=== PATIENT | male | born 1980 ===

== ENCOUNTER 2024-10-01 22:37 | Observation (INO) | payer OTHER, SELFPAY ==
[2024-10-01] VITALS (7 sets, daily range): BP systolic 100–149; BP diastolic 68–95; BMI 28.7; BMI 28.8
[2024-10-01 17:38] LABS: Glucose - Point of Care 88 mg/dl (70-99)
[2024-10-01 17:55] LABS: ALT (SGPT) 54 U/L (0-50); AST (SGOT) 36 U/L (17-59); Albumin 5.2 g/dl (3.5-5.0); Alkaline Phosphatase 40 U/L (38-126); Blood Urea Nitrogen 13 mg/dl (9-20); Calcium 9.6 mg/dl (8.4-10.2); Carbon Dioxide 22 mmol/L (22-30); Chloride 104 mmol/L (98-107); Glucose 95 mg/dl (70-99); Potassium 3.7 mmol/L (3.5-5.1); Sodium 141 mmol/L (135-145); Total Bilirubin 0.7 mg/dl (0.2-1.3); Total Protein 8.2 g/dl (6.3-8.2); eGFR > 60.00
--- NOTE | 2024-10-01 17:58 | EDRN ---
Pt says he is dehydrated and that he has not eaten much today. Pt says he passed out earlier today so his called 911. Pt adds he has family hx heart conditions and he is borderline diabetic. Pt says he knows he has PVCs from previous ekgs he
has had done. 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 Pt also had moments today of numbness on his L leg and arm 'but very little.' Pt notes 'weakness in my stomach with nausea.' Nausea came after pt developed symptoms. When pt passed out, he was
stressed out, feeling overwhelmed with work. Pt was standing, called his then he sat and tried to drink water then focused on breathing exercises then passed out. Pt did not have dizziness 'I felt I was losing oxygen.' No pain/pressure in
chest. EMS found pt's sbp to be 106 which pt says is very low for him. Pt has had few sips of water while in ED room and also ate some crackers and feels more alert. Pt has discomfort in his abdomen currently and has tingling in his L fingers and
says if he really thinks about it, he has some numbness on the tip of his R fingers. Pt thinks he passed out for approximately 30 seconds. No headache, fever/chills/cough, vomiting, urinary symptoms.
[2024-10-01 18:00] LABS: Hematocrit 38.3 % (39.0-52.0); Hemoglobin 13.1 g/dL (13.0-18.0); Mean Corp Hgb Conc. 34.2 g/dL (33.0-37.0); Mean Corpuscular Hgb 28.9 pg (27.0-31.0); Mean Corpuscular Volume 84.5 fL (80.0-94.0); Platelet Count 273 10^3/uL (130-400); Red Blood Cell Count 4.53 10^6/uL (4.70-6.10); Red Cell Dist. Width 12.9 % (11.5-14.5); White Blood Cell Count 9.4 10^3/uL (4.8-10.8)
[2024-10-01 18:06] LABS: Troponin I < 0.012 ng/ml
--- NOTE | 2024-10-01 18:09 | ED.GENMED ---
History of Present Illness
General
Chief Complaint: Fainting/Passed Out
Source: patient
Exam Limitations: none
Time Seen by Provider: 10/01/24 17:55
History of Present Illness
History of Present Illness:
43yoM with no significant past medical history presenting via EMS for evaluation after syncopal episode. Patient reports feeling unwell today. He was very busy with work and did not eat much throughout the day. He was experiencing a discomfort in
his epigastric region with nausea. He was also feeling dehydrated. He was getting done with work for the day and was standing. He suddenly became short of breath and called his . He felt like he was not getting enough oxygen and lost
consciousness. He was unconscious for about 30 seconds. He is currently feeling better but continues to report a discomfort in his epigastric region. He denies any chest pain. He has been told that his heart rate was low at prior PCP visits and
prior EKGs have shown PVCs. 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 His uncle and grandfather both have pacemakers.
Phy Exam
General Physical Exam
General Presentation: well appearing and no apparent distress
General Skin: warm and dry
General Habitus: normal
General Mental: alert
ENT Exam
ENT Exam: normocephalic
Cardiovascular Exam
Cardiovascular Exam: regular rate/rhythm, no edema and other (Frequent PVCs on the monitor which do not correlate with a palpable pulse)
Pulmonary Exam
Pulmonary Exam: lungs clear, no respiratory distress, no rales, no crackles, no rhonchi and no wheezing
Gastrointestinal Exam
Gastrointestinal Exam: non tender, soft and non distended
Neurological Exam
Neurological Exam: alert
[place] Coma Scale
Eye Opening: Spontaneous
Verbal Response: Oriented
Motor Response: Obeys Commands
GCS Total Score: 15
Skin Exam
Skin Exam: normal color and warm/dry
Psychiatric Exam
Psychiatric Exam: normal mood/affect
Course
Orders/Labs/Results
Orders:
Orders
10/01/24 17:16
Electrocardiogram (*1) Urgent
Reason for Study: Syncope
EKG- Treatment ONCE
10/01/24 17:26
Electrocardiogram (*1) Urgent
Reason for Study: Other
Other Reason for Exam: Possible Stroke
Bedside Glucose- Treatment ONCE
Cardiac Monitoring- Treatment ONCE
IV Insert/Care/Rem.- Treatment PRN
Vital Signs As Directed
Frequency: Other
Weight As Directed
Frequency: Once
Comment: ZERO STRETCHER SCALE FOR ACCURATE WEIGHT
O2 Therapy [RESP] Urgent
Titrate/Wean O2 to maintain O2 sat greater than (%): 93
Special Instructions: MAINTAIN CONTINUOUS O2 SATS > OR = 93%
10/01/24 17:27
EKG- Treatment ONCE
10/01/24 17:30
Complete Blood Count/With Diff Urgent
Comprehensive Metabolic Panel Urgent
Lipase Urgent
Comment: ADDON
Magnesium Urgent
Comment: ADDON
Troponin I Urgent
10/01/24 18:08
Add On- LAB Urgent
Tests Added?: lipase and magnesium level
0.9% Sodium Chloride 1000 ml [Nss] 1,000 ml IV BOLUS
10/01/24 18:40
D-Dimer Urgent
PTT Urgent
Prothrombin Time Urgent
10/01/24 19:26
Urinalysis Reflex To Culture Urgent
Date Specimen was Collected: 10/01/24
Time Specimen was Collected: 19:21
Urine Microscopic Reflex Cult Urgent
Urine Culture Urgent
[place] Source: U
Specimen Description:
Date Specimen was Collected: 10/01/24
Time Specimen was Collected: 19:21
10/01/24 21:01
Troponin I Urgent
Abnormal Lab Results
10/01/24 10/01/24
17:30 19:26
RBC 4.53 L 10^6/uL
(4.70-6.10)
Hct 38.3 L %
(39.0-52.0)
Absolute Lymphs (auto) 5.1 H 10^3/uL
(1.2-3.4)
Absolute Monos (auto) 0.7 H 10^3/uL
(0.1-0.6)
Neutrophils % 37.8 L %
(42.2-75.2)
Lymphocytes % 53.8 H %
(20.5-51.1)
ALT 54 H U/L
(0-50)
Albumin 5.2 H g/dl
(3.5-5.0)
Ur Occult Blood Reflex 2+ A
(Negative)
Leukocyte Esterase Rfl 1+ A
(Negative)
10/01/24 17:30
10/01/24 17:30
Vital Signs
Initial and Last Documented VS:
Initial Vital Signs
Temp Pulse Resp BP Pulse Ox
97.7 F 45 18 149/95 100
10/01/24 17:20 10/01/24 17:20 10/01/24 17:20 10/01/24 17:20 10/01/24 17:20
Last Documented Vital Signs
Temp Pulse Resp BP Pulse Ox
97.7 F 87 21 100/77 100
10/01/24 17:20 10/01/24 21:00 10/01/24 21:00 10/01/24 21:00 10/01/24 17:57
MDM/Problems Addressed
Differential Diagnosis Includes:
43yoM here after a syncopal episode. Preceded by shortness of breath. Has not eaten much today and was feeling dehydrated. Episode preceded by SOB. VSS. He is awake, alert, with a GCS of 15. Frequent PVCs noted on the monitor which do not correlate
with a palpable pulse. Differential diagnosis includes but is not limited to: dehydration, orthostatic hypotension, vasovagal episode, arrhythmia
Initial ED plan: Triage EKG shows NSR with frequent PVCs and QTc of 493. Check cardiac labs, magnesium, lipase, D-dimer, and place on education nurse. IV fluid bolus.
*EKG
Interpreted by ED Provider?: Yes
EKG Intrepretation Date: 10/01/24
Heart Rate: 84
Rate: normal
Rhythm: sinus and PVC's
[place]: normal axis
Interval: other (QTc 493)
QRS Pattern: normal QRS
Ischemia: no ischemia
*Critical Care Note
Total Time (30-74mins, 75-104mins- exclusive of procedures): Not Applicable
Update Note
Update Note:
Labs overall unremarkable including normal electrolytes. Troponin within normal limits. D-dimer normal making PE very unlikely. Patient continues to have frequent PVCs throughout ED course. Will admit for telemetry monitoring and cardiology
evaluation.
ED Attending Note
-
Portions of this chart may have been created with voice recognition software.� Occasional wrong word or��sound alike� substitutions may have occurred due to the inherent limitations of voice recognition software.
Discharge Plan
Departure
Patient Disposition: Admit
Date of Disposition: 10/01/24
Time of Disposition: 21:23
Presentation/result/management discussed w/ accepting MD/DO: Hospitalist
Discharge Problem:
Frequent PVCs, Syncope
Prescriptions:
No Action
Claritin-D 12 Hour 5-120 mg Tablet Extended Release 12 Hr
1 tab PO DAILY
Referrals:
NONE,* [Family Provider] -
Interventions
Interventions:
*Risk Screen - Suicide Last Done: 10/01/24 17:20
*General Assessment Last Done: 10/01/24 17:20
*Neglect/Abuse Screening Last Done: 10/01/24 17:20
*ED- Fall Risk Assessment Last Done: 10/01/24 17:20
ED- Cardiac Assessment Last Done: 10/01/24 18:14
ED- Neurological Assessment Last Done: 10/01/24 18:14
Discharge Date and Time
Print Language: YAKUT
[2024-10-01] MEDS: NSS 1000 IV (18:11)
[2024-10-01 18:19] LABS: % Basophils 0.2 % (0-2); % Eosinophils 1.1 % (0-6); % Immature Granulocytes 0.1 % (0-0.5); % Lymphocytes 53.8 % (20.5-51.1); % Neutrophils 37.8 % (42.2-75.2); Absolute Eosinophils 0.1 10^3/uL (0-0.7); Absolute Lymphocytes 5.1 10^3/uL (1.2-3.4); Absolute Monocytes 0.7 10^3/uL (0.1-0.6); Absolute Neutrophils 3.5 10^3/uL (1.4-6.5); Nucleated Red Blood Cells % 0 % (-)
[2024-10-01 18:53] LABS: Lipase 61 U/L (23-300)
[2024-10-01 19:04] LABS: PT 13.5 Sec (11.4-14.6)
[2024-10-01 19:05] LABS: APTT 25.5 Sec (23.4-35.0)
[2024-10-01 19:10] LABS: D-Dimer < 0.27 ug/mlFEU (0.00-0.50)
[2024-10-01 19:32] LABS: Urine Albumin Negative (Neg - Trace); Urine Bilirubin Negative (Negative); Urine Character Clear (Clear); Urine Color Yellow; Urine Glucose Negative (Negative); Urine Ketone Negative (Negative); Urine Leukocyte 1+ (Negative); Urine Nitrite Negative (Negative); Urine Occult Blood 2+ (Negative); Urine Urobilinogen Negative (Neg - 1+)
[2024-10-01 19:39] LABS: Urine Red Blood Cell 0-2 /HPF (0-2); Urine Squamous Cell None seen /LPF (Few); Urine White Cell 0-2 /HPF (0-5)
[2024-10-01 21:39] LABS: Troponin I < 0.012 ng/ml
--- NOTE | 2024-10-01 21:55 | HPS.HSE ---
Family Physician
-
Family Physician: * NONE
Chief Complaint
-
Syncope
History of Present Illness
This is a 43-year-old male with no known segment past medical history who presents to the emergency department after a syncopal episode at home.
Patient reported that he was sitting at his work desk at home when he started to feel some shortness of breath. It appears as though he may be panicking. He states that he is try to calm himself down by taking long deep breaths. However at he
does not walk. Eventually he did pass out according to his who was observing him at the time. He said that he was unresponsive for about 30 seconds. There was no seizure-like activity including tongue biting, loss of bladder or bowel
continence or postictal depression. When he came to he felt hungry and still has some nausea. He denied having any chest pain. Patient felt like his episode was secondary to dehydration and stress at home. He denied any recent episodes of
exertional chest pain, exertional dyspnea, palpitations lightheadedness or dizziness. He noted that his blood pressure after coming to was usually lower than his usual numbers which was usually in the 140s over 90s. He denies any personal history
of CAD hypertension hyperlipidemia or arrhythmia. He denies any family history of arrhythmia or hypertrophic heart disease. Patient has routine medical follow-up and has not been diagnosed with any heart disease. He does report that he has had
PVCs seen will occasionally on routine EKGs. He noted that his PVCs were a lot more frequent during his current admission.
Here in the emergency department he was afebrile, blood pressure was 100/77 with a pulse of 87 and he was satting 100% on room air. ECG shows normal sinus rhythm with very frequent PVCs but no bigeminy or trigeminy.
Labs were all unremarkable with normal WBCs with hemoglobin of 13.1, platelet count 273. Electrolytes BUN and creatinine were normal. His D-dimer was negative. His UA was negative.
Medical History
Past Medical History
Past Medical History: Reports Other (Seasonal allergies)
Past Surgical History: Reports None
Social History
Tobacco: Non-smoker
Alcohol: Occasional
Drug: None
Personal:
Living: With Family
Employment: Employed
Family History
Family History: Hypertension
Allergies / Home Medications
Allergies reflects when Allergies were last updated in [facility].
Home Medications with original date entered in [facility]
Allergy/Medication List:
Allergies
Allergy/AdvReac Type Severity Reaction Status Date / Time
No Known Allergies Allergy Unverified 10/01/24 17:17
Home Medications
loratadine 5 mg-pseudoephedrine ER 120 mg tablet,extended release,12hr (Claritin-D 12 Hour) 1 tab PO DAILY 10/01/24
Review of Systems
-
History Source: Patient
Constitutional: Reports No Symptoms
EENT: Reports No Symptoms
Respiratory: Reports No Symptoms
Cardiac: Reports No Symptoms
Abdomen/GI: Reports No Symptoms
: Reports No Symptoms
Musculoskeletal: Reports No Symptoms
Skin: Reports No Symptoms
Neurological: Reports No Symptoms
Endocrine: Reports No Symptoms
Hematologic/Lymphatic: Reports No Symptoms
Psych: Reports No Symptoms
Physical Exam
Vital Signs
Vital Signs
Temp Pulse Resp BP Pulse Ox
97.7 F 87 21 100/77 100
10/01/24 17:20 10/01/24 21:00 10/01/24 21:00 10/01/24 21:00 10/01/24 17:57
Physical Exam
General: Well Developed, Well Nourished, No Apparent Distress and Comfortable
HEENT: NormoCephalic, Anicteric, Moist mucous membranes and Atraumatic
Respiratory: Clear
Cardiac: S1/S2 and Regular Rhythm; No Murmur or Peripheral Edema
GI: Soft, Non Tender, Non Distended and Normal Bowel Sounds
Rectal: Deferred by Provider
Genito-urinary: Deferred by me
Musculoskeletal: No Clubbing, No Cyanosis and No Edema
Neuro: AO x 3 and Nonfocal/grossly intact
Hematologic/Lymphatic: No Lymphadenopathy
Psych: Calm
Laboratory Results
-
10/01/24 17:30
10/01/24 17:30
Laboratory Results
PT 13.5 Sec (11.4-14.6) 10/01/24 18:40
INR 1.00 10/01/24 18:40
APTT 25.5 Sec (23.4-35.0) 10/01/24 18:40
Total Bilirubin 0.7 mg/dl (0.2-1.3) 10/01/24 17:30
AST 36 U/L (17-59) 10/01/24 17:30
ALT 54 U/L (0-50) H 10/01/24 17:30
Alkaline Phosphatase 40 U/L (38-126) 10/01/24 17:30
Troponin I < 0.012 ng/ml 10/01/24 21:01
Lipase 61 U/L (23-300) 10/01/24 17:30
Data Reviewed
-
Medical Tests (Nuc Med, Echo, EKG etc): Image Personally Visualized and interpreted
Lab Data: Labs Reviewed by me
Old Records: Reviewed
Impression/Plan
-
IMPRESSION:
Healthy appearing 43 y.o male with no significant past medical history presents to ED after a syncopal episode lasting 30 seconds at home. Now back to baseline with mostly negative findings in ED. No CP, no palpitations, negative troponin and
non-ischemic ECG. D-dimer is also negative. No family history of heart disease. ECG is notable for quite frequent PVCs but no VT. Concern remains for a possible brief sustained VT.
PLAN:
Syncope - possibly arrythmic versus hypovolemic. Has frequent pvcs. Hx suggest underlying baseline PVC tendency possibly worsened by caffeine, pseudoephedrine or possibly by ischemia.
- admit to telemetry observation
- monitor on tele for 24 hours
- echo
- trop negative x 2, will not repeat
- check lipid panel and a1c,
- given frequent pvcs needs ischemia evaluation which can be done as outpatient
- orthostatic vs
- cardiology consultation
DVT PPX - SCDs
Code status - Full Code
[2024-10-02] VITALS: BP 129/92; BP 145/87; BP 152/92; PULSE 48; PULSE 67; PULSE 68
[2024-10-02 03:17] VITALS: BP 129/88
[2024-10-02 07:30] VITALS: BP 138/83
[2024-10-02 07:55] VITALS: BP 120/75; BP 125/80; BP 138/83; PULSE 50; PULSE 55; PULSE 58
--- NOTE | 2024-10-02 08:33 | W.DCSUMMARY ---
Discharge Summary
Discharge Data
Date of Admission: 10/01/24
Date of Discharge: 10/02/24
-
Pending Results: Yes
Hospital Course
44-year-old male with no past medical history came to the hospital after syncopal episode. EKG on admission showed PVCs. Patient was admitted for observation with cardiology evaluation. On 10/02/2024 patient decided to leave AGAINST MEDICAL
ADVICE. I or cardiology did not get a chance to see the patient prior to him leaving. Patient decided to leave AGAINST MEDICAL ADVICE and did not wanted to wait for physicians. Patient left the hospital on 10/02/2024.
Discharge Plan
-
Patient Disposition: Against Medical Advice
Discharge Diagnosis/Procedures: Syncope
Referrals:
NONE,* [Family Provider] -
Prescriptions:
No Action
Claritin-D 12 Hour 5-120 mg Tablet Extended Release 12 Hr
1 tab PO DAILY
Discharge Date and Time
Discharge Date/Time: 10/02/24 08:54
Print Language: MOZAMBICAN
[2024-10-02 09:07] LABS: HDL Cholesterol 53 mg/dl; LDL Cholesterol, Calculated 133 mg/dl; Total Cholesterol 204 mg/dl (50-199); Triglyceride 94 mg/dl (10-149); Very Low Density Lipoprotein 18 mg/dl (0-30)
--- NOTE | 2024-10-02 10:15 | CM ---
CM reviewed chart, patient left AMA.
[2024-10-02 11:29] LABS: Glycohemoglobin (HgbA1c) 5.9 % (4.0-5.6)
--- NOTE | 2024-10-02 12:33 | W.PN.UPDATE ---
Update Note
Progress Note Update
Notified by RN that patient wanted to leave AGAINST MEDICAL ADVICE this morning. Patient did not wait for me or cardiology to arrive before leaving.
== END 2024-10-02 08:54 | disposition left against medical advice (07) ==
LOC: 4 WEST ACU 22:37
PROVIDERS: Physician Assistant; Student in an Organized Health Care Education/Training Program; ADMITTING PHYSICIAN Internal Medicine; ATTENDING PHYSICIAN Internal Medicine; EMERGENCY PHYSICIAN Emergency Medicine
DX: R55 Syncope and collapse (principal); R06.02 Shortness of breath; I49.3 Ventricular premature depolarization
CPT/HCPCS: 80053; 80061; 81003; 81015; 82962; 83036; 83690; 83735; 84484; 85025; 85379; 85610; 85730; 87086; 93005; 96360; 96361; 99285; G0378

== ENCOUNTER 2024-10-04 00:37 | Observation (INO) | payer OTHER, SELFPAY ==
[2024-10-03] VITALS (8 sets, daily range): BP systolic 112–166; BP diastolic 64–100; BMI 31.1
[2024-10-03 21:04] LABS: % Basophils 0.3 % (0-2); % Eosinophils 1.3 % (0-6); % Immature Granulocytes 0.1 % (0-0.5); % Monocytes 9.3 % (1.7-9.3); Absolute Eosinophils 0.1 10^3/uL (0-0.7); Absolute Lymphocytes 3.5 10^3/uL (1.2-3.4); Absolute Monocytes 0.7 10^3/uL (0.1-0.6); Absolute Neutrophils 3.4 10^3/uL (1.4-6.5); Hematocrit 36.3 % (39.0-52.0); Hemoglobin 12.6 g/dL (13.0-18.0); Mean Corp Hgb Conc. 34.7 g/dL (33.0-37.0); Mean Corpuscular Volume 83.4 fL (80.0-94.0); Mean Platelet Volume 8.9 fL (7.4-10.4); Nucleated Red Blood Cells % 0 % (-); Platelet Count 265 10^3/uL (130-400); Red Blood Cell Count 4.35 10^6/uL (4.70-6.10); Red Cell Dist. Width 12.8 % (11.5-14.5); White Blood Cell Count 7.8 10^3/uL (4.8-10.8)
[2024-10-03 21:14] LABS: INR 1.01; PT 13.6 Sec (11.4-14.6)
[2024-10-03 21:15] LABS: APTT 28.6 Sec (23.4-35.0)
[2024-10-03 21:18] LABS: ALT (SGPT) 52 U/L (0-50); AST (SGOT) 30 U/L (17-59); Albumin 4.8 g/dl (3.5-5.0); Alkaline Phosphatase 32 U/L (38-126); Blood Urea Nitrogen 17 mg/dl (9-20); Calcium 9.4 mg/dl (8.4-10.2); Carbon Dioxide 26 mmol/L (22-30); Chloride 105 mmol/L (98-107); Estimated Creatinine Clearance > 125 ml/min; Glucose 100 mg/dl (70-99); Potassium 4.4 mmol/L (3.5-5.1); Sodium 141 mmol/L (135-145); Total Bilirubin 0.7 mg/dl (0.2-1.3); Total Protein 7.4 g/dl (6.3-8.2); eGFR > 60.00
--- NOTE | 2024-10-03 21:27 | ED.GENMED ---
History of Present Illness
General
Chief Complaint: Chest Pain
Source: patient
Time Seen by Provider: 10/03/24 20:21
Nursing documentation reviewed up to this point in time: agreed with
History of Present Illness
History of Present Illness:
Pleasant 43-year-old male presents to the emergency department with palpitations. Was seen in the emergency department on Friday and had a cardiac workup in the ER. Because of his persistence of symptoms, he was admitted to the hospitalist
service. Patient stated that he did not feel that he could wait for an echocardiogram so he left AGAINST MEDICAL ADVICE. He went home and states that he had several more near syncopal events. He became concerned because his business management specialist is in
[facility] and patient does not feel he can get an echocardiogram at his office. Patient came back stating that his symptoms persist. Currently patient does not have any chest pains but does feel palpitations and lightheadedness.
Review of Systems
Review of Systems
Allergies reviewed?: Yes
All Other Systems: ROS reviewed and negative except as documented in HPI and ROS
Constitutional: Reports no symptoms
EENT: Reports no symptoms
Respiratory: Reports no symptoms
Cardiac: Reports palpitations
ABD/GI: Reports no symptoms
: Reports no symptoms
Musculoskeletal: Reports no symptoms
Skin: Reports no symptoms
Neurological: Reports no symptoms
Endocrine: Reports no symptoms
Hematologic/Lymphatic: Reports no symptoms
Psychiatric: Reports anxiety
Phy Exam
General Physical Exam
General Presentation: well appearing and no apparent distress
General Skin: warm and dry
General Habitus: normal
General Mental: alert
General Hydration: appears well hydrated
ENT Exam
ENT Exam: EOMI, pharynx normal, neck supple and normocephalic
Eye Exam
Eye Exam: PERRL, cornea clear and conjunctiva normal
Cardiovascular Exam
Cardiovascular Exam: regular rate/rhythm, no edema, no murmur and normal peripheral pulses
Pulmonary Exam
Pulmonary Exam: lungs clear, no respiratory distress, no rales, no crackles, no rhonchi, no stridor, no wheezing and no cough
Gastrointestinal Exam
Gastrointestinal Exam: normal bowel sounds, non tender, soft, no organomegaly, no pulsatile mass and non distended
Neurological Exam
Neurological Exam: alert, oriented x3, no motor deficits and speech normal
Musculoskeletal Exam
Musculoskeletal Exam: full ROM and no edema
Skin Exam
Skin Exam: normal color, warm/dry, no rash and no petechia
Psychiatric Exam
Psychiatric Exam: normal mood/affect
Scores
Heart Score for Chest Pain Patients
STEMI patient?: No
History: Slightly or Non-Suspicious
ECG: Normal
Age: </= 45 years
Risk Factors: 1 or 2 Risk Factors
Troponin: </= Normal Limit
Heart Score for Chest Pain Patients: 1
Heart Score Risk: 2.5% MACE over next 6 weeks
Course
Orders/Labs/Results
Orders:
Orders
10/03/24 19:25
Electrocardiogram (*1) Urgent
Reason for Study: Chest Pain
EKG- Treatment ONCE
10/03/24 20:23
CR Chest - 2 Views Urgent
Comment:
Reason For Exam: chest pain
10/03/24 20:57
Complete Blood Count/With Diff Urgent
Comprehensive Metabolic Panel Urgent
NT-proBNP Urgent
PTT Urgent
Prothrombin Time Urgent
TSH Urgent
Troponin I Urgent
Abnormal Lab Results
10/03/24
20:57
RBC 4.35 L 10^6/uL
(4.70-6.10)
Hgb 12.6 L g/dL
(13.0-18.0)
Hct 36.3 L %
(39.0-52.0)
Absolute Lymphs (auto) 3.5 H 10^3/uL
(1.2-3.4)
Absolute Monos (auto) 0.7 H 10^3/uL
(0.1-0.6)
Glucose 100 H mg/dl
(70-99)
ALT 52 H U/L
(0-50)
Alkaline Phosphatase 32 L U/L
(38-126)
10/03/24 20:57
10/03/24 20:57
Vital Signs
Initial and Last Documented VS:
Initial Vital Signs
Temp Pulse Resp BP Pulse Ox
98.7 F 50 20 166/85 99
10/03/24 19:22 10/03/24 19:22 10/03/24 19:22 10/03/24 19:22 10/03/24 19:22
Last Documented Vital Signs
Temp Pulse Resp BP Pulse Ox
98.7 F 75 18 135/87 100
10/03/24 19:22 10/03/24 23:15 10/03/24 23:15 10/03/24 23:00 10/03/24 23:15
*Radiology
Radiology exam reviewed: all reviewed NAD by ED Provider
*Pulse Oximetry
Patient hypoxic: no
*EKG
Interpreted by ED Provider?: Yes
Interpretation: normal
Comparison EKG: no changes
Heart Rate: 69
Rate: normal
Rhythm: sinus and PVC's
[place]: normal axis
Interval: normal interval
QRS Pattern: normal QRS
Ischemia: no ischemia
*Critical Care Note
Total Time (30-74mins, 75-104mins- exclusive of procedures): Not Applicable
Update Note
Update Note:
Discussed lab work with patient. Patient concerned because he states that he was admitted on Friday morning but left AGAINST MEDICAL ADVICE prior to being seen by cardiology. Patient stated that he needed an echocardiogram and 'he did not get an
echo in a timely fashion'. Patient came back because he had 2 near syncopal events at home. He does have a business management specialist in [facility] which could follow-up with him today but he does not feel that he can get an echocardiogram at his
business management specialist office. Patient concerned to go home. We did discuss lab work and his troponins remain unchanged. He is still having the PVCs. Given his persistent near syncope, patient to be brought into the hospital for further evaluation.
ED Attending Note
-
Portions of this chart may have been created with voice recognition software.� Occasional wrong word or��sound alike� substitutions may have occurred due to the inherent limitations of voice recognition software.
Discharge Plan
Departure
Patient Disposition: Admit
Date of Disposition: 10/03/24
Time of Disposition: 23:42
Admit to: Telemetry
Presentation/result/management discussed w/ accepting MD/DO: Hospitalist
Condition: Fair
Discharge Problem:
Frequent PVCs, Syncope
Prescriptions:
No Action
Claritin-D 12 Hour 5-120 mg Tablet Extended Release 12 Hr
1 tab PO DAILY
Referrals:
Joe Arellano MD [Family Provider] -
Interventions
Interventions:
*Risk Screen - Suicide Last Done: 10/03/24 19:22
*General Assessment Last Done: 10/03/24 19:22
*Neglect/Abuse Screening Last Done: 10/03/24 19:22
*ED- Fall Risk Assessment Last Done: 10/03/24 20:59
*ED COVID-19 Vaccine History Last Done: 10/03/24 23:20
ED- Cardiac Assessment Last Done: 10/03/24 20:59
Discharge Date and Time
Print Language: LAO
[2024-10-03 21:35] LABS: Troponin I < 0.012 ng/ml
[2024-10-03 21:47] LABS: TSH 2.12 uIU/ml (0.47-4.68)
--- NOTE | 2024-10-03 23:57 | HPS.HSE ---
Family Physician
-
Family Physician: Joe Arellano MD
Chief Complaint
-
Palpitations
History of Present Illness
This is a 43-year-old male with no known segment past medical history who presents to the emergency department after a syncopal episode at home. He was admitted 10/01 initially but left AMA pending echo and cardiology evaluation and now returns due
to recurrence of the episodes at home.
Has previously reported, patient developed sensation of presyncope while sitting down few days ago. Lasted for about 30 seconds with some unresponsive episode and was brought to the emergency department. He had some nausea. Workup in the ED at
that time was mostly unremarkable. He was noted to have frequent PVCs and patient also endorsed history of prior PVCs. here was no seizure-like activity including tongue biting, loss of bladder or bowel continence or postictal depression. When he
came to he felt hungry and still has some nausea. He denied having any chest pain. Patient felt like his episode was secondary to dehydration and stress at home. He denied any recent episodes of exertional chest pain, exertional dyspnea,
palpitations lightheadedness or dizziness. He noted that his blood pressure after coming to was usually lower than his usual numbers which was usually in the 140s over 90s. He denies any personal history of CAD hypertension hyperlipidemia or
arrhythmia. He denies any family history of arrhythmia or hypertrophic heart disease. He drinks caffeine significantly and takes pseudoephedrine with Claritin for allergies..
After discharge AMA on 10/01, did stop drinking coffee and plan to follow-up with his loss prevention associate midweek. However over the last 2 days he has had 2 recurrences of his presyncopal episode. There was no complete loss of consciousness but appears to
have had decreased responsiveness lasting seconds. He reported was somewhat associated with mild nausea and abdominal discomfort. He denies having any chest pain or shortness of breath.
He came to the emergency department today, he was afebrile, blood pressure was 135/87 with pulse of 75 and was at 100% on room air. ECG shows PVCs with trigeminy and a baseline sinus rhythm at a rate of 69.
CBC was unremarkable electrolytes BUN/creatinine were normal. Chest x-ray was clear. Troponin was negative. BNP was negative. TSH was normal. He had a prior D-dimer which was negative.
A1c was 5.9.
Medical History
Past Medical History
Past Medical History: Reports Other (Seasonal allergies)
Past Surgical History: Reports None
Social History
Tobacco: Non-smoker
Alcohol: Occasional
Drug: None
Personal:
Living: With Family
Employment: Employed
Family History
Family History: Hypertension
Allergies / Home Medications
Allergies reflects when Allergies were last updated in [employer].
Home Medications with original date entered in [employer]
Allergy/Medication List:
Allergies
Allergy/AdvReac Type Severity Reaction Status Date / Time
No Known Allergies Allergy Unverified 10/01/24 17:17
Home Medications
loratadine 5 mg-pseudoephedrine ER 120 mg tablet,extended release,12hr (Claritin-D 12 Hour) 1 tab PO DAILY 10/01/24
Review of Systems
-
History Source: Patient
Constitutional: Reports No Symptoms
EENT: Reports No Symptoms
Respiratory: Reports No Symptoms
Cardiac: Reports Palpitations
Abdomen/GI: Reports No Symptoms
: Reports No Symptoms
Musculoskeletal: Reports No Symptoms
Skin: Reports No Symptoms
Neurological: Reports No Symptoms
Endocrine: Reports No Symptoms
Hematologic/Lymphatic: Reports No Symptoms
Psych: Reports No Symptoms
Physical Exam
Vital Signs
Vital Signs
Temp Pulse Resp BP Pulse Ox
98.7 F 75 18 135/87 100
10/03/24 19:22 10/03/24 23:15 10/03/24 23:15 10/03/24 23:00 10/03/24 23:15
Physical Exam
General: Well Developed, Well Nourished, No Apparent Distress and Comfortable
HEENT: NormoCephalic, Anicteric, Moist mucous membranes and Atraumatic
Respiratory: Clear
Cardiac: S1/S2 and Regular Rhythm; No Murmur or Peripheral Edema
GI: Soft, Non Tender, Non Distended and Normal Bowel Sounds
Rectal: Deferred by Provider
Genito-urinary: Deferred by me
Musculoskeletal: No Clubbing, No Cyanosis and No Edema
Neuro: AO x 3 and Nonfocal/grossly intact
Hematologic/Lymphatic: No Lymphadenopathy
Psych: Calm
Laboratory Results
-
10/03/24 20:57
10/03/24 20:57
Laboratory Results
PT 13.6 Sec (11.4-14.6) 10/03/24 20:57
INR 1.01 10/03/24 20:57
APTT 28.6 Sec (23.4-35.0) 10/03/24 20:57
Total Bilirubin 0.7 mg/dl (0.2-1.3) 10/03/24 20:57
AST 30 U/L (17-59) 10/03/24 20:57
ALT 52 U/L (0-50) H 10/03/24 20:57
Alkaline Phosphatase 32 U/L (38-126) L 10/03/24 20:57
Troponin I < 0.012 ng/ml 10/03/24 20:57
Data Reviewed
-
Medical Tests (Nuc Med, Echo, EKG etc): Image Personally Visualized and interpreted
Lab Data: Labs Reviewed by me
Old Records: Reviewed
Impression/Plan
-
IMPRESSION:
43 y.o male with no significant past medical history presents to ED after a syncopal episode lasting 30 seconds at home and was admitted 2 days ago. Left AMA without completing the w/u and now returns. Negative findings again with normal xray,
troponin and bnp. TSH is normal. ECG w/ frequent pvcs including trigemny and quadrigeminy.
PLAN:
Syncope/palipitations - Has frequent pvcs. Hx suggest underlying baseline PVC tendency possibly worsened by caffeine, pseudoephedrine or possibly by ischemia.
- admit to telemetry observation
- monitor on tele for 24 hours
- echo
- trops have been negative
- given frequent pvcs needs ischemia evaluation which can be done as outpatient
- orthostatic vs
- cardiology consultation
DVT PPX - SCDs
Code status - Full Code
[2024-10-04] VITALS (10 sets, daily range): BP systolic 118–144; BP diastolic 81–106; PULSE 97–107
--- NOTE | 2024-10-04 08:05 | W.PN.HOSP.TC ---
Addendum entered and electronically signed by Nati Sharma MD 10/04/24 14:57:
total DC time 40 min
Addendum entered and electronically signed by Nati Sharma MD 10/04/24 08:30:
# Prediabetes
A1C 5.9%
Informed about lifestyle modification
# Hyperlipidemia
LDL 133,
Informed about lifestyle modification prior to starting meds
Original Note:
Today's Communication/Plan
-
see A/P
Assessment / Plan
Assessment / Plan
43-year-old male with no known significant past medical history who presented to the emergency department after a syncopal episode at home. He was admitted 10/01 initially but left AMA pending echo and cardiology evaluation and returned due to
recurrence of the episodes at home.
Has previously reported development of presyncope sensation while sitting down few days ago. Lasted for about 30 seconds with some unresponsive episode and was brought to the emergency department. He had some nausea. Workup in the ED at that time
was mostly unremarkable. He was noted to have frequent PVCs and patient also endorsed history of prior PVCs. No seizure-like activity including tongue biting, loss of bladder or bowel continence or postictal depression. He denied to chest pain.
Patient felt like his episode was secondary to dehydration and stress at home. He denied any recent episodes of exertional chest pain, exertional dyspnea, palpitations lightheadedness or dizziness. He denies any family history of arrhythmia or
hypertrophic heart disease. He drinks caffeine significantly and takes pseudoephedrine with Claritin for allergies..
After discharge AMA on 10/01, he did stop drinking coffee and plan to follow-up with his energy operations vice president midweek. However over the last 2 days he has had 2 recurrences of his presyncopal episode. There was no complete loss of consciousness but appears
to have had decreased responsiveness lasting seconds. He reported was somewhat associated with mild nausea and abdominal discomfort. He denies having any chest pain or shortness of breath.
He came to the emergency department. ECG showed PVCs with trigeminy and a baseline sinus rhythm at a rate of 69.
A/P:
# Syncope/Presyncope/palpitations with frequent PVCs.
# baseline PVC tendency possibly worsened by caffeine, pseudoephedrine
Informed to hold pseudoephedrine which can cause dizziness
Cont director global market research
Check echo
trops have been negative
Orthostatic VS acceptable
cardiology consultation
DVT PPX - SCDs
Code status - Full Code
DW RN
Anticipated Discharge: 24 - 48 hours
Subjective/Interval History
-
Date of Service: October 04, 2024
Objective Data
-
Labs:
Laboratory Results
10/03/24
20:57
WBC 7.8
Hgb 12.6 L
Hct 36.3 L
Plt Count 265
PT 13.6
INR 1.01
APTT 28.6
Sodium 141
Potassium 4.4
Chloride 105
Carbon Dioxide 26
BUN 17
Creatinine 0.7
Glucose 100 H
Calcium 9.4
Total Bilirubin 0.7
AST 30
ALT 52 H
Alkaline Phosphatase 32 L
Vital Signs:
Vital Signs
Temp Pulse Resp BP Pulse Ox
37.1 C 73 18 122/86 98
10/03/24 19:22 10/04/24 04:00 10/04/24 04:00 10/04/24 01:30 10/04/24 01:30
Review of Systems
-
History Source: Patient
All other systems: Reviewed and negative
Physical Exam
-
General: Well Developed, Well Nourished, No Apparent Distress, Comfortable and Conversant; Negative Respiratory Distress
HEENT: Normocephalic, Atraumatic, Nose Appears Normal and Ears Appear Normal; Negative Oxygen
Respiratory: Clear to Auscultation and Non Labored Respirations; Negative Accessory Resp Muscle Use
Cardiac: Regular Rhythm and S1/S2
GI: Soft, Nontender, Nondistended and Normal Bowel Sounds
Skin: Warm and Dry
Neuro: Awake, Alert, Oriented, AO x 3 and Nonfocal/Grossly Intact
Psych: Calm and Intact Judgement/Insight
Data Reviewed
-
Diagnostic Radiology: Report Reviewed by me
Labs: Labs Reviewed by me
--- NOTE | 2024-10-04 08:20 | CON.CAR ---
Addendum entered and electronically signed by Geovany Bolivar MD 10/04/24 12:00:
I saw and examined the patient.
The DIRECTOR OF SOLUTIONS ARCHITECTURE's note was reviewed and I agree with the note.
Comment: 43-year-old male without a significant past medical history who presented back to the emergency room with presyncope. There does not appear to be an obvious cause for his symptoms at this time. He does appear to have a significant PVC
burden which we will further clarify extended monitoring. Echo was unremarkable.
- D/c with 14 day monitor
Echo: Oct 04 2024: CONCLUSIONS
Normal left ventricular chamber size with low normal left ventricular systolic
function.
LV ejection fraction is 50%.
Normal diastolic function.
No significant valvular disease.
Mildly dilated aortic root at the level of the Sinus of Valsalva (3.6 cm).
No prior study available for comparison.
Original Note:
Consultation
Consultation Request
Date/Time Consultation Requested: 10/04/2024 00:30
Date/Time Consultation Performed: 10/04/2024 08:15
Requesting Provider: Dr. Nicole
Performing Provider: ZAINA Velarde for Dr. Bolivar
Reason for Consultation: Syncope, PVCs
Medical History
-
Chief Complaint: Pre-syncope
History of Present Illness:
Nolan Fernandez is a 43-year-old male without a significant past medical history who presented back to the emergency room with presyncope. He initially presented 10/01/2024 after having a syncopal episode at home. He was sitting at his desk when he
suddenly felt short of breath. He was not sure if he was having a panic attack. He then felt lightheaded. He had syncope in front of his . When he came to he felt nauseous and endorsed bilateral finger tingling. He signed out AMA the
following morning. He presented back last evening with continued bilateral hand tingling and lightheadedness. He did not have another episode of syncope. He is a never smoker. He does not consume alcohol. He denies family history of premature
CAD/SCD. He was not sure if any the symptoms were related to excess caffeine. No episodes of chest pain. He is having PVCs which are asymptomatic.
Records have been requested by his primary dba developer, Dr. Ugo Alva ([facility]).
Past Medical History
Past Medical History: Arrhythmias (PVCs)
Past Surgical History: None
Social History
Tobacco: Non-Smoker
Alcohol: None
Drug: None
Personal:
Living: With Family
Employment: Employed
Family History
Family History: Reviewed & Not Pertinent (Denies early CAD. Denies SCD.)
Allergies / Home Medications
Allergy/AdvReac Type Severity Reaction Status Date / Time
No Known Allergies Allergy Verified 10/03/24 19:24
�Medication �Instructions �Recorded �Confirmed �Type
loratadine 5 mg-pseudoephedrine ER 1 tab PO DAILY 10/01/24 10/03/24 History
120 mg tablet,extended
release,12hr (Claritin-D 12 Hour)
Review of Systems
-
History Source: Patient
All other systems: Negative unless noted
Constitutional: Fatigue
EENT: No Symptoms
Respiratory: No Symptoms
Cardiac: No Symptoms
Abdomen/GI: No Symptoms
: No Symptoms
Musculoskeletal: No Symptoms
Skin: No Symptoms
Neurological: No Symptoms
Endocrine: No Symptoms
Hematologic/Lymphatic: No Symptoms
Physical Exam
Vital Signs
Temp Pulse Resp BP Pulse Ox
98.7 F 73 18 122/86 98
10/03/24 19:22 10/04/24 04:00 10/04/24 04:00 10/04/24 01:30 10/04/24 01:30
Lab Results
10/03/24 20:57
10/03/24 20:57
Troponin I < 0.012 ng/ml 10/03/24 20:57
Xeu-E-Ftznzkxanuj Pept 65.0 pg/ml 10/03/24 20:57
Physical Exam
General: Well Developed, Well Nourished, No Apparent Distress and Comfortable
HEENT: Normocephalic, Anicteric and Moist Mucous Membranes
Respiratory: Non Labored Respirations
Cardiac: S1/S2 and Irregular Rhythm (PVCs); Negative Peripheral Edema
Breast: Deferred by me
GI: Soft, Non Tender, Non Distended and Normal Bowel Sounds
Rectal: Deferred by Provider
Genito-urinary: No Costovertebral Tender
Musculoskeletal: No Clubbing, No Cyanosis and No Edema
Skin: Warm and Dry
Neuro: AO x 3
Hematologic/Lymphatic: No Lymphadenopathy
Psych: Calm
Impression / Plan
-
I/P: 43M presented 10/01/2024 with syncope -> AMA 10/02/2024. Presented back with lightheadedness 10/03/2024.
Primary dba developer: Dr. Ugo Alva ([facility])
Syncope
- Telemetry with PVCs
- No further syncope
- Echocardiogram
- No orthostasis
PVCs
- Rare palpitations
- Electrolytes stable
Prediabetes, HgbA1c 5.9%
Hypercholesterolemia
- TC 204, LDL 133, HDL 53, TG 94
- 10-year ASCVD risk 1.5%, recommend dietary changes
Data Reviewed
-
EKG: Report Reviewed by me
Radiology: Report Reviewed by me
Labs: Labs Reviewed by me
Old Records: Requested
--- NOTE | 2024-10-04 11:50 | CM ---
CM met with pt and spouse bedside
Pt resides with his spouse and 5 children (ages 3-13) in a 2[address] with 1STE
Full flight to 2nd floor
Pt is indep with his ADLs, drives+
Denies use of DMEs and financial insecurities
PCP- Joe Arellano
Rx- [facility] [address]
Discharge Disposition- anticipate home no needs
--- NOTE | 2024-10-04 14:49 | W.DCSUMMARY ---
Discharge Summary
Discharge Data
Date of Admission: 10/04/24
Date of Discharge: 10/04/24
-
Pending Results: No
Hospital Course
Principal Diagnosis:
Syncope/Presyncope/palpitations with frequent PVCs.
Prediabetes with A1C at 5.9%.
Hyperlipidemia with LDL at 133.
Chronic Diagnoses:�
No known significant past medical history
Consultations:�
Cardiology
Procedures:�
None
Clinical course:�
This is a 43-year-old male with no known significant past medical history who presented to the emergency department after a syncopal episode at home. He was admitted on 10/01 initially but left AMA pending echo and cardiology evaluation at that time,
returned 10/03 due to recurrence of the episodes at home (complained of presyncope).
Problem 1:
Syncope/Presyncope/palpitations with frequent PVCs.
Baseline PVC possibly worsened by caffeine and pseudoephedrine.
He has been informed to hold pseudoephedrine (a component of Claritin-D) which can cause dizziness.
His line lead was unrevealing.
His echo was unrevealing: EF 50%. Normal diastolic function. No significant valvular disease.
His troponin were negative.
His orthostatic VS was acceptable.
He can continue cardiac nurse for 14 days per cardiology. He was cleared for discharge per cardiology.
Problem 2:
Prediabetes.
A1C at 5.9%.
Informed about lifestyle modification prior to starting meds.
Problem 3:
Hyperlipidemia.
LDL at 133.
Informed about lifestyle modification prior to starting meds.
Discharge Plan
-
Patient Disposition: Home (Routine Discharge)
Discharge Diagnosis/Procedures: Presyncope with PVC on EKG;
Prediabetes (A1C 5.9%);
Hyperlipidemia (LDL 133)
Condition: Good
Diet: As tolerated, Low Fat, Low Cholesterol and Diabetic, Carb Controlled
Activity: As tolerated
Driving Restrictions: As prior to admission
Activity Restrictions/Additional Instructions:
Follow up with rag cutting machine feeder for cardiac nurse
Try lifestyle modification first for your prediabetes and hyperlipidemia (regular exercise and dietary control)
Referrals:
Joe Arellano MD [Family Provider] - in less than 1 week
Geovany Bolivar MD [Active] - in three to four weeks
Additional Discharge Medication Instructions: Stop Claritin D (the pseudoephedrine component can cause dizziness)
Prescriptions:
Discontinued
Claritin-D 12 Hour 5-120 mg Tablet Extended Release 12 Hr
1 tab PO DAILY
Discharge Orders:
Discharge Patient (As Directed); Ordered 10/04/24
Ordered By: Nati Sharma
Discharge Date and Time
Print Language: GUATEMALAN
== END 2024-10-04 14:58 | disposition home or self-care (01) ==
LOC: ED 00:37
PROVIDERS: ADMITTING PHYSICIAN Internal Medicine; ATTENDING PHYSICIAN Internal Medicine; EMERGENCY PHYSICIAN Student in an Organized Health Care Education/Training Program; FAMILY PHYSICIAN General Practice; OTHER PHYSICIAN Internal Medicine Cardiovascular Disease
DX: R55 Syncope and collapse (principal); R07.9 Chest pain, unspecified; R73.03 Prediabetes; I49.3 Ventricular premature depolarization; R00.2 Palpitations
CPT/HCPCS: 71046; 80053; 83880; 84443; 84484; 85025; 85610; 85730; 93005; 93306; G0378

== ENCOUNTER 2024-12-07 12:15 | Emergency (ER) | payer OTHER, SELFPAY ==
[2024-12-07 12:26] VITALS: BP 137/96
--- NOTE | 2024-12-07 14:00 | ED.GENMED ---
History of Present Illness
General
Chief Complaint: Insect Sting
Source: patient
Exam Limitations: none
Time Seen by Provider: 12/07/24 13:30
Nursing documentation reviewed up to this point in time: agreed with
History of Present Illness
History of Present Illness:
Patient is a 44-year-old male with history of hypertension prediabetic presents for what he believed to be a wasp sting to the right calf a few hours ago this morning. Patient says that he developed some itchiness and soft tissue swelling around
the sting. Slowly he started noticing the development of a small red bumps on his arms, upper back, a few on his legs that were itchy as well. Subsequent to that he developed a very mild chest tightness and he was not sure if he was anxious or if
he was developing slower anaphylactic reaction. He did use some sort of home remedy that he applied on top of his rash and now he feels symptoms are all resolved except for some irritation and itchiness localized to the sting area of the lower leg.
He has no chest tightness, shortness of breath, throat closing, trouble breathing, facial swelling. He has never had any reaction to bee sting before that he can recall.
Past History
Past History
ED Past Medical History: HTN and Other (PVCs)
Social History
Tobacco: Non-smoker
Alcohol: None
Drug: None
Personal:
Living: with family
Review of Systems
Review of Systems
Allergies reviewed?: Yes
All Other Systems: Not applicable
Phy Exam
Physical Exam
Physical Exam:
GENERAL: Alert , in no apparent distress
No facial swelling appreciated or eyelid edema
EYE: pupils equal and reactive
NECK: Supple
ENT: o/p clr, mmm.
No swelling to the posterior pharynx
CARDIAC: Regular rate and rhythm .
LUNGS: Clear breath sounds bilaterally, no acute respiratory distress, no wheezes/rales/rhonchi
ABDOMEN: Soft, without focal tenderness, no r/g, no cvat, normal bowel sounds
NEUROLOGICAL: Alert and oriented, no focal neuro deficits
SKIN: Warm and dry, skin intact.
Patient has slightly raised slightly pink and warm area around a tiny sting site to the right lateral calf above the ankle which is nontender, has full range of motion to the ankle, there are no hives visible on the patient's skin
MUSCULOSKELETAL: No edema, well perfused. neg salima's sign
Right lateral calf slight soft tissue swelling with some pink skin changes
PSYCH: Normal and appropriate interaction.
Course
Orders/Labs/Results
Orders:
Orders
12/07/24 12:19
EKG [Electrocardiogram (*1)] Urgent
Reason for Study: Chest Pain
Comment: c/o tightness after getting an insect bite
EKG- Treatment ONCE
12/07/24 12:24
Electrocardiogram (*1) Stat
Comment: ALREADY DONE
Vital Signs
Initial and Last Documented VS:
Initial Vital Signs
Temp Pulse Resp BP Pulse Ox
36.8 C 53 18 137/96 99
12/07/24 12:26 12/07/24 12:26 12/07/24 12:26 12/07/24 12:26 12/07/24 12:26
Last Documented Vital Signs
Temp Pulse Resp BP Pulse Ox
36.8 C 53 18 137/96 99
12/07/24 12:26 12/07/24 12:26 12/07/24 12:26 12/07/24 12:26 12/07/24 14:01
MDM/Problems Addressed
Differential Diagnosis Includes:
allergic reaction, insect sting, anaphylaxis
MDM/Problems Addressed:
44-year-old male with a history of frequent PVCs and hypertension presents for redness, itchiness, swelling around his sting to his right lower leg which she believes was a wasp earlier today, within a timeframe of several hours he developed random
what sound like hives on his arms and upper back that were itchy as well. He also developed a very mild chest tightness and thought maybe he was having a more significant reaction.'s since applying a cream on his body he feels better. His EKG
shows frequent PVCs which is very common for him. He had no syncope today.
Given the fact that he had some mild symptoms develop I will prescribe him an EpiPen but for now recommend Benadryl every 8 for 2 days. Return precautions given
*Pulse Oximetry
SaO2: 99
Oxygen Mode of Delivery: Room air
Patient hypoxic: no (99)
*Critical Care Note
Total Time (30-74mins, 75-104mins- exclusive of procedures): Not Applicable
ED Attending Note
-
Portions of this chart may have been created with voice recognition software.� Occasional wrong word or��sound alike� substitutions may have occurred due to the inherent limitations of voice recognition software.
Discharge Plan
Departure
Patient Disposition: Home (Routine Discharge)
Date of Disposition: 12/07/24
Time of Disposition: 14:11
Patient with high blood pressure during this ER visit?: No
Condition: Fair
Covid-19: Not Applicable
Discharge Problem:
Allergic to insect stings, Allergic reaction
Instructions: Insect Bites and Stings (DC)
Prescriptions:
New
epinephrine [EpiPen 2-Freeman] 0.3 mg/0.3 mL auto-injector
0.3 mg IM Q5-15M PRN (Reason: anaphylaxis) Qty: 2 0RF
Referrals:
Joe Arellano MD [Family Provider, Family Practice] - Follow up in 2-3 days
Activity Restrictions/Additional Instructions:
Take 2 Benadryl when you get home. And you can do this again before bed. You can take it up to 3 times a day as needed for itchiness and allergic reaction. Should you develop any additional symptoms like shortness of breath, throat closing,
facial swelling, vomiting or diarrhea you can take the EpiPen, use directly on the thigh and come to the hospital.
Your EKG showed frequent PVCs which is something you have had before. Return for any passing out episodes.
Interventions
Interventions:
*Risk Screen - Suicide Last Done: 12/07/24 12:26
*Neglect/Abuse Screening Last Done: 12/07/24 12:26
*Nursing Disposition Last Done: 12/07/24 14:22
ED-Skin Assessment Last Done: 12/07/24 13:07
ED- Pulmonary Assessment Last Done: 12/07/24 13:07
Discharge Date and Time
Discharge Date/Time: 12/07/24 14:22
Print Language: DIVEHI
== END 2024-12-07 14:22 | disposition home or self-care (01) ==
LOC: EMR 12:15
PROVIDERS: EMERGENCY PHYSICIAN Emergency Medicine; FAMILY PHYSICIAN General Practice
DX: T63.461A Toxic effect of venom of wasps, accidental (unintentional), initial encounter (principal); M79.89 Other specified soft tissue disorders; I49.3 Ventricular premature depolarization; R07.89 Other chest pain; I10 Essential (primary) hypertension
CPT/HCPCS: 99283; 93005

== ENCOUNTER 2025-01-02 20:14 | Emergency (ER) | payer OTHER, SELFPAY ==
[2025-01-02 20:17] VITALS: BP 160/100
[2025-01-02 21:29] LABS: Hematocrit 36.0 % (39.0-52.0); Hemoglobin 12.6 g/dL (13.0-18.0); Mean Corp Hgb Conc. 35.0 g/dL (33.0-37.0); Mean Corpuscular Volume 82.8 fL (80.0-94.0); Platelet Count 243 10^3/uL (130-400); Red Cell Dist. Width 12.6 % (11.5-14.5)
[2025-01-02 21:44] LABS: ALT (SGPT) 28 U/L (0-50); AST (SGOT) 22 U/L (17-59); Albumin 4.7 g/dl (3.5-5.0); Alkaline Phosphatase 42 U/L (38-126); Blood Urea Nitrogen 19 mg/dl (9-20); Calcium 9.9 mg/dl (8.4-10.2); Carbon Dioxide 23 mmol/L (22-30); Chloride 108 mmol/L (98-107); Glucose 93 mg/dl (70-99); Lipase 67 U/L (23-300); Potassium 4.3 mmol/L (3.5-5.1); Sodium 138 mmol/L (135-145); Total Protein 7.8 g/dl (6.3-8.2); eGFR > 60.00
[2025-01-02 22:01] LABS: Absolute Neutrophils -Man Diff 2.8 10^3/uL (1.4-6.5)
[2025-01-02 22:02] LABS: Normal RBC Morphology Yes; Platelets Checked Yes; Total Cells Counted 100
[2025-01-02 22:12] LABS: Urine Character Clear (Clear)
[2025-01-02 22:34] VITALS: BP 148/88
[2025-01-02 22:42] LABS: Urine Squamous Cell 0-2 /LPF (Few)
--- NOTE | 2025-01-03 01:30 | ED.GENMED ---
History of Present Illness
General
Chief Complaint: Chest Pain
Source: patient
Time Seen by Provider: 01/02/25 20:52
History of Present Illness
History of Present Illness:
Note:
CHIEF COMPLAINT(S)
Left-sided abdominal pain with radiating discomfort, history of passing out.
HISTORY OF PRESENT ILLNESS
The patient is a 44-year-old male with a history of episodic bloating and unexplained passing out events. Approximately three months ago, the patient experienced a fainting episode for which he was evaluated at the hospital. On that day, he had not
eaten, consuming only coffee, and it was suspected, but not confirmed, that his symptoms might be cardiac in nature. He was noted to have frequent premature ventricular complexes at the time. The patient underwent cardiac evaluation with a CT scan
and a calcium score, which was negative, 1.5 to 2 months prior. He follows up with a reo asset manager in [place] who is investigating possible heart muscle weakness.
In the past 2-3 years, the patient has experienced intermittent bloating, and last year tested positive for Helicobacter pylori during a routine physical. Originally, he declined antibiotic treatment, preferring alternative remedies, but tested
positive again recently and proceeded to a course of antibiotics. He reported onset of left flank pain and groin discomfort during the antibiotic treatment, prompting him to stop one of the medications due to a lingering leg pain.
In the last two days, following occasional consumption of alcohol on a vacation, the patient reports exacerbation of his symptoms with severe, localized pain beneath the left rib moving toward the left chest. The pain is described as extreme in the
morning, often accompanying sensations elvin to gas discomfort. He also experienced dizziness today. Aggravating factors appear to be gaseous distension and possibly the episodes of alcohol intake, which is otherwise a rare occurrence.
The patient expresses concerns about potential pancreatitis due to the nature of pain and symptomatology.
PAST MEDICAL AND SURGICAL HISTORY
History of intermittent bloating. Known Helicobacter pylori infection.
CHRONIC MEDICAL CONDITIONS SIGNIFICANTLY AFFECTING CARE
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
REVIEW OF SYSTEMS
- Cardiovascular: History of premature ventricular complexes, no history of heart attack.
- Gastrointestinal: Intermittent bloating; positive for Helicobacter pylori; recent onset left upper quadrant pain; past experience of diarrhea alternating with normal bowel movements.
- Renal/Flank: Left-sided flank and groin pain post antibiotic use.
- Neurological: Occasional dizziness.
- Social History: Rare alcohol consumption, recent multiple occurrences possibly contributing to symptoms.
PHYSICAL EXAM
General: Alert, no acute distress.
Skin: Warm, dry.
Neck: Supple, trachea midline.
Eyes, Ears, Nose, Mouth, and Throat: No abnormalities mentioned. Oral mucosa moist.
Cardiovascular: Regular rhythm without murmurs.
Respiratory: Lungs clear to auscultation.
Gastrointestinal: Abdomen has slight tenderness in the left upper quadrant; no evidence of costovertebral angle tenderness bilaterally.
Back: Normal range of motion, Normal alignment.
Musculoskeletal: No tenderness noted upon examination.
Neurological: Alert and oriented to person, place, time, and situation.
Psychiatric: Cooperative, appropriate mood & affect.
PROBLEM LIST
- Acute Problems: Left-sided abdominal pain with suspicion of a gastrointestinal cause; dizziness.
- Chronic Problems: Premature ventricular complexes expressing as episodes of palpitations and fainting.
PLAN
- Perform an Electrocardiogram (EKG) to evaluate cardiac function.
- Order imaging studies to assess for potential causes of left-side pain including kidney or pancreatic pathology.
- Conduct urine analysis for evidence of renal pathology.
- Evaluate kidney function and possible flank-related pain causes.
- Discuss dietary and lifestyle modifications given episodes of alcohol-induced symptoms.
- Follow up on imaging and test results for further review and plan adjustment.
DIFFERENTIAL DIAGNOSIS
The Differential Diagnosis includes, in no particular order and is not limited to:
1. Pancreatitis
2. Nephrolithiasis (Kidney stones)
3. Gastritis or Peptic Ulcer Disease
4. Costochondritis
5. Musculoskeletal pain
6. Irritable Bowel Syndrome
7. Cardiac-related pain (low suspicion)
8. Pyelonephritis
9. Hepatitis
10. Pleurisy
EKG
My independent EKG interpretation is:
- Time of EKG: Not specified
- Rhythm: Sinus rhythm
- Heart Rate: Sinus bradycardia at a rate of 52 bpm
- VT Interval: Not specified
- QRS Duration: Not specified
- QT Interval: Not specified
- [place]: Normal axis
- Abnormalities: No ischemic changes observed
Disposition:
SUMMARY OF ENCOUNTER
The patient, a 44-year-old male, presented with complaints of left-sided abdominal pain. He has a history of recent cardiac workup which was negative. A CT scan performed showed no significant abnormalities but revealed a moderate amount of stool in
the colon. Laboratory tests including a complete blood count (CBC) and comprehensive metabolic panel (CMP) were normal, except for a small amount of microhematuria. The electrocardiogram (EKG) was also normal. Based on these findings, management
involved recommending Miralax for constipation for four days and initiating a proton pump inhibitor (PPI) daily, considering his history of Helicobacter pylori infection. It was advised to repeat urinalysis in the next few weeks to ensure the
resolution of hematuria.No clinical concern for pulmonary embolism. No tachycardia or hypoxia. No risks.
PLAN
- Recommend the patient use Miralax for four days to address constipation.
- Start a proton pump inhibitor (PPI) daily.
- Repeat urinalysis in the next few weeks to verify the resolution of microhematuria.
- Follow up with primary care physician (PCP) and, if symptoms persist, consider a referral to a bench hand machine if cleared by cardiology.
- Patient advised to return if experiencing any progressive symptoms.
PATIENT EDUCATION AND COUNSELING
The patient was educated on the importance of managing constipation and the use of Miralax. Given his history of Helicobacter pylori infection, he was informed about the beneficial role of a PPI in managing potential gastritis or peptic ulcer
disease. He was also advised on the necessity for repeat urinalysis to ensure that the microhematuria had cleared and on the importance of follow-up with PCP.
FOLLOW-UP INSTRUCTIONS
Patient to follow up with primary care physician in the next few weeks. If symptoms persist, a consultation with a bench hand machine may be considered, dependent on cardiology clearance. Patient should return if symptoms worsen.
MEDICAL DECISION MAKING
-Number and Complexity of Problems Addressed:
Chronic conditions affecting care: History of recent cardiac evaluation, Helicobacter pylori infection, and current gastrointestinal symptoms.
DDx: Pancreatitis, nephrolithiasis, gastritis or peptic ulcer disease, costochondritis, musculoskeletal pain, irritable bowel syndrome, cardiac-related pain, pyelonephritis, hepatitis, pleurisy.
-Data:
Category 1
My independent interpretation of the EKG indicates normal sinus rhythm, and the CT scan was grossly negative except for moderate stool in the colon. The CBC and CMP were reviewed and found to be normal; however, there was a small amount of
microhematuria present in the urinalysis.
Category 2
N/A
Category 3
N/A
-Risk:
Consideration of Admission/Observation: Escalation of care including admission/observation was considered given the complexity and risk of the patients presenting complaint, exam findings, and their underlying comorbidities. However, ultimately I
feel the patient is safe for outpatient management with close follow-up. Reasoning: Work-up reassuring, does not reveal any acute life/organ-threatening processes, patients symptoms well controlled upon reevaluation, reexamination is reassuring,
vitals are stable, patient agreeable with discharge, reliable for follow-up.
DIAGNOSIS
- Constipation (ICD-10: K59.00)
- Gastroesophageal reflux disease with history of Helicobacter pylori (ICD-10: K21.9)
- Hematuria, unspecified (ICD-10: R31.9)
- Abdominal pain, left upper quadrant (ICD-10: R10.12)
Past History
Past History
ED Past Medical History: HTN and Other (PVCs)
Social History
Tobacco: Non-smoker
Alcohol: None
Drug: None
Personal:
Living: with family
Phy Exam
Physical Exam
Physical Exam:
.
Scores
Heart Score for Chest Pain Patients
STEMI patient?: Not applicable
Course
Orders/Labs/Results
Orders:
Orders
01/02/25 20:16
EKG [Electrocardiogram (*1)] Urgent
Reason for Study: Chest Pain
EKG- Treatment ONCE
01/02/25 21:13
CT Abd/pel Without Iv Or Oral Urgent
Comment:
Reason For Exam: L flank pain
01/02/25 21:15
Complete Blood Count/With Diff Urgent
Comprehensive Metabolic Panel Urgent
Lipase Urgent
Manual Differential Urgent
Urinalysis Reflex To Culture Urgent
Date Specimen was Collected: 01/02/25
Time Specimen was Collected: 21:13
Urine Microscopic Reflex Cult Urgent
Urine Culture Urgent
[place] Source: U
Specimen Description:
Date Specimen was Collected: 01/02/25
Time Specimen was Collected: 21:13
Abnormal Lab Results
01/02/25
21:15
RBC 4.35 L 10^6/uL
(4.70-6.10)
Hgb 12.6 L g/dL
(13.0-18.0)
Hct 36.0 L %
(39.0-52.0)
Monocytes (Manual) 10 H %
(2-9)
Chloride 108 H mmol/L
(98-107)
Creatinine 0.6 L mg/dL
(0.7-1.3)
Ur Occult Blood Reflex 2+ A
(Negative)
Urine RBC 7-10 A /HPF
(0-2)
Urine Bacteria (Reflex) Moderate A
(Negative)
01/02/25 21:15
01/02/25 21:15
Vital Signs
Initial and Last Documented VS:
Initial Vital Signs
Temp Pulse Resp BP Pulse Ox
98.9 F 58 17 160/100 99
01/02/25 20:17 01/02/25 20:17 01/02/25 20:17 01/02/25 20:17 01/02/25 20:17
Last Documented Vital Signs
Temp Pulse Resp BP Pulse Ox
98.9 F 66 18 148/88 99
01/02/25 20:17 01/02/25 22:34 01/02/25 22:34 01/02/25 22:34 01/03/25 01:31
*Pulse Oximetry
SaO2: 99
Oxygen Mode of Delivery: Room air
Patient hypoxic: no
*Critical Care Note
Total Time (30-74mins, 75-104mins- exclusive of procedures): Not Applicable
ED Attending Note
-
Portions of this chart may have been created with voice recognition software.� Occasional wrong word or��sound alike� substitutions may have occurred due to the inherent limitations of voice recognition software.
Discharge Plan
Departure
Patient Disposition: Home (Routine Discharge)
Date of Disposition: 01/03/25
Time of Disposition: 01:35
Patient with high blood pressure during this ER visit?: Yes
Discharge Problem:
Acute flank pain, Microscopic hematuria
Instructions: Flank pain, BLOOD PRESSURE
Prescriptions:
New
pantoprazole [Protonix] 40 mg tablet,delayed release (DR/EC)
40 mg PO DAILY Qty: 30 0RF
Rx Instructions:
Please take 30 minutes prior to eating or drinking anything in the morning.
No Action
epinephrine [EpiPen 2-Freeman] 0.3 mg/0.3 mL auto-injector
0.3 mg IM Q5-15M PRN (Reason: anaphylaxis) Qty: 2 0RF
Referrals:
Joe Arellano MD [Family Provider, Family Practice]
Activity Restrictions/Additional Instructions:
Please be sure to have your doctor repeat your urinalysis in the next 2 weeks to ensure that your microscopic blood is cleared. Return immediately for worsening pain, shortness of breath, pain when you breathe, fevers, abdominal pain or any other
concerns. If symptoms persist, further workup may be necessary.
Interventions
Interventions:
*Risk Screen - Suicide Last Done: 01/02/25 20:18
*General Assessment Last Done: 01/02/25 20:18
*Neglect/Abuse Screening Last Done: 01/02/25 20:18
*ED COVID-19 Vaccine History Last Done: 01/02/25 20:18
*Nursing Disposition Last Done: 01/03/25 02:00
ED- Cardiac Assessment Last Done: 01/02/25 20:36
Discharge Date and Time
Discharge Date/Time: 01/03/25 02:01
Print Language: [email or web address]
== END 2025-01-03 02:01 | disposition home or self-care (01) ==
LOC: EMR 20:14
PROVIDERS: EMERGENCY PHYSICIAN Emergency Medicine; FAMILY PHYSICIAN General Practice
DX: R10.11 Right upper quadrant pain (principal); R31.29 Other microscopic hematuria; I10 Essential (primary) hypertension; I49.3 Ventricular premature depolarization; Z86.19 Personal history of other infectious and parasitic diseases
CPT/HCPCS: 99284; 74176; 80053; 81003; 81015; 83690; 85025; 87086; 93005